=== PATIENT | female | born 1945 | race Two or more races ===

== ENCOUNTER 2018-05-29 11:26 | Inpatient (IN) | payer MEDICARE, MEDICAID ==
[~2018-05-29] VITALS: Ht 157.5 cm; Wt 102.2 kg
[~2018-05-29 11:26] MED LIST: ALLOPURINOL; ATOR40TA70 PO; CALC667C PO; CEPH-568 PO; CITALOPRAM; DOCU-150 PO; DONE5TAB33 PO; FURO40TA5 PO; GABA250S4 PO; HYDR-4134 PO; LEVO50TA8 PO; LEVOTHYROXINE; LISI-604 PO; LOSARTAN; METO25TA6 PO; MY80 PO; PRAVASTATIN; SIME80TA15 PO
[2018-05-29 12:29] LABS: BASOPHILS % 1.1 % (0.0-2.0); EOSINOPHILS % 0.6 % (0.0-5.0); HEMATOCRIT. 33.8 % (36.0-48.0); HEMOGLOBIN. 11.6 g/dL (12.0-16.0); LYMPHOCYTES % 23.5 % (20.0-50.0); MEAN CORPUSCULAR VOLUME 96.3 fL (81.0-99.0); MEAN PLATELET VOLUME 7.6 fl (7.4-10.4); MONOCYTES % 6.1 % (2.0-8.0); NEUTROPHILS % 68.7 % (40.0-76.0); PLATELET 317 x1000/uL (130-400); RED BLOOD CELL COUNT 3.51 mill/uL (4.2-5.4); RED CELL DISTRIBUTION WIDTH 15.4 % (11.6-14.6)
[2018-05-29 12:35] LABS: CHLORIDE 93 mEq/L (98-107)
[2018-05-29 12:37] LABS: PROTHROMBIN TIME 10.1 sec (9.1-11.1)
[2018-05-29] MEDS ORDERED: CLONIDINE 0.1MG TABLET PO PRN (16:45)
[2018-05-29] MEDS ORDERED: HYDROMORPHONE HCL/PF 2MG/ML CPJ IV PRN (16:45)
[2018-05-29] MEDS ORDERED: LORAZEPAM 2MG/ML CPJ IV PRN (16:45)
[2018-05-29] MEDS ORDERED: ACETAMINOPHEN 650MG/20.3ML UDC GT PRN (16:45)
[2018-05-29] MEDS ORDERED: ACETAMINOPHEN 325MG TABLET PO PRN (16:45)
[2018-05-29] MEDS ORDERED: SIMETHICONE 80MG TABLET CHEW PO PRN (16:45)
[2018-05-29] MEDS ORDERED: ACETAMINOPHEN 325MG TABLET PO ONE (17:15)
[2018-05-29 20:45] VITALS: BP 113/57
[2018-05-29] MEDS ORDERED: ONDANSETRON 4MG ODT PO PRN (21:00)
[2018-05-29 21:15] VITALS: BP 113/57
[2018-05-29] MEDS: LEVOTHYROXINE SODIUM 50MCG TABLET PO SCH (23:19)
[2018-05-29] MEDS: ATORVASTATIN CALCIUM 40MG TABLET PO SCH (23:19)
[2018-05-29] MEDS: ENOXAPARIN 30MG/0.3ML SYR SUBCUT SCH (23:20)
[2018-05-30 00:47] VITALS: BP 135/42
[2018-05-30 04:00] VITALS: BP 122/46
[2018-05-30] MEDS: LEVOTHYROXINE SODIUM 50MCG TABLET PO SCH (06:26)
[2018-05-30 07:29] LABS: BASOPHILS % 0.5 % (0.0-2.0); EOSINOPHILS % 0.4 % (0.0-5.0); HEMATOCRIT. 35.2 % (36.0-48.0); HEMOGLOBIN. 11.7 g/dL (12.0-16.0); LYMPHOCYTES % 17.3 % (20.0-50.0); MEAN CORPUSCULAR HEMOGLOBIN 32.3 pg (28.0-32.0); MEAN CORPUSCULAR VOLUME 97.4 fL (81.0-99.0); MEAN PLATELET VOLUME 7.6 fl (7.4-10.4); MONOCYTES % 6.6 % (2.0-8.0); NEUTROPHILS % 75.2 % (40.0-76.0); PLATELET 331 x1000/uL (130-400); RED BLOOD CELL COUNT 3.61 mill/uL (4.2-5.4); RED CELL DISTRIBUTION WIDTH 15.3 % (11.6-14.6)
[2018-05-30 07:43] LABS: PHOSPHORUS 3.4 mg/dL (2.5-4.9)
[2018-05-30 08:00] VITALS: BP 167/70
[2018-05-30] MEDS: DONEPEZIL HCL 5MG TABLET PO SCH (09:39)
[2018-05-30] MEDS: SIMETHICONE 80MG TABLET CHEW PO SCH ×4 (09:39→21:00)
[2018-05-30 12:00] VITALS: BP 120/56
[2018-05-30 16:00] VITALS: BP 121/61
[2018-05-30 20:00] VITALS: BP 161/58
[2018-05-30] MEDS: ENOXAPARIN 30MG/0.3ML SYR SUBCUT SCH (21:55)
[2018-05-30] MEDS: ATORVASTATIN CALCIUM 40MG TABLET PO SCH (21:55)
[2018-05-31] VITALS (13 sets, daily range): BP systolic 129–194; BP diastolic 43–84
[2018-05-31] MEDS: LEVOTHYROXINE SODIUM 50MCG TABLET PO SCH (06:29)
[2018-05-31] MEDS: DONEPEZIL HCL 5MG TABLET PO SCH (10:15)
[2018-05-31] MEDS: SIMETHICONE 80MG TABLET CHEW PO SCH ×3 (10:15→18:49)
[2018-05-31] MEDS ORDERED: LIDOCAINE HCL 1% 10 MG/ML 10ML VIAL ONE (13:22)
[2018-05-31] MEDS ORDERED: SODIUM BICARBONATE 4% (2.4MEQ) 5ML VIAL IV ONE (13:22)
[2018-05-31] MEDS ORDERED: IOHEXOL-300 100 ML BOTTLE ONE (13:22)
[2018-05-31] MEDS ORDERED: FENTANYL CITRATE/PF 50MCG/ML 2ML VIAL ONE (13:55)
== END 2018-05-31 21:00 | disposition home or self-care (01) | DRG 314 ==
LOC: ER 12:12 → 6WST 13:33 → EDBEDREQ 13:38 → EDBEDREQTM 13:38 → ENRESERV 19:06
PROVIDERS: ADMIT Internal Medicine Nephrology; ATTEND Internal Medicine Nephrology
PROC: 5A1D70Z Performance of Urinary Filtration, Intermittent, Less than 6 Hours Per Day (ICD-10-PCS; principal; 2018-05-29)
PROC: B51W1ZZ Fluoroscopy of Dialysis Shunt/Fistula using Low Osmolar Contrast (ICD-10-PCS; 2018-05-31)
PROC: B51N1ZZ Fluoroscopy of Left Upper Extremity Veins using Low Osmolar Contrast (ICD-10-PCS; 2018-05-31)
PROC: B31J1ZZ Fluoroscopy of Left Upper Extremity Arteries using Low Osmolar Contrast (ICD-10-PCS; 2018-05-31)
DX: T82.510A Breakdown (mechanical) of surgically created arteriovenous fistula, initial encounter (principal); I50.43 Acute on chronic combined systolic (congestive) and diastolic (congestive) heart failure; J96.00 Acute respiratory failure, unspecified whether with hypoxia or hypercapnia; N18.6 End stage renal disease; I13.2 Hypertensive heart and chronic kidney disease with heart failure and with stage 5 chronic kidney disease, or end stage renal disease; F03.90 Unspecified dementia, unspecified severity, without behavioral disturbance, psychotic disturbance, mood disturbance, and anxiety; D63.8 Anemia in other chronic diseases classified elsewhere; E11.22 Type 2 diabetes mellitus with diabetic chronic kidney disease; I35.1 Nonrheumatic aortic (valve) insufficiency; Z83.3 Family history of diabetes mellitus; Z99.2 Dependence on renal dialysis; Y83.8 Other surgical procedures as the cause of abnormal reaction of the patient, or of later complication, without mention of misadventure at the time of the procedure; Y92.89 Other specified places as the place of occurrence of the external cause
CPT/HCPCS: 36415; 36901; 71045; 80048; 80053; 83036; 83735; 83880; 84100; 84443; 84484; 85025; 85610; 93005; 99285; C1769; C1887; J1644; J1650; J2060; J3010; J3490; J7030; J7050; Q9967